=== PATIENT | male | born 1965 | race Caucasian/White ===

== ENCOUNTER 2018-02-25 06:21 | Day surgery (SDC) | payer OTHER ==
[2018-02-18 16:56] VITALS: BMI 25.0
[2018-02-25] MEDS ORDERED: methylPREDNISolone ACET (DEPO) 40 MG/1 ML VIAL ONE (07:04)
[2018-02-25] MEDS ORDERED: LIDOCAINE 1%/EPI 1:100000 (20 ML MULTI DOSE VIAL) ONE (07:05)
[2018-02-25] MEDS ORDERED: THROMBIN (BOVINE) 5,000 UNIT VIAL TP ONE ×2 (07:05→09:37)
[2018-02-25] MEDS ORDERED: GUM MASTIC/STORAX/MSAL/ALCOHOL 1 DRP DROPSBTL MC ONE (07:05)
--- NOTE | 2018-02-25 07:09 | HP ---
History & Physical Update - History History: No Change - Physical Physical: No Change - Assessment Assessment: No Change - Plan Plan: No Change (Initial H&P is located in patient's paper chart. Here today for elective L4/5 laminectomy 2/2 LBP w/ radiculopathy (RLE-->toes). No new complaints or medications.)
[2018-02-25] MEDS ORDERED: oxyCODONE HCL 10 MG SUSTAINED ACTING TABLET PO STA (07:17)
[2018-02-25] MEDS ORDERED: MIDAZOLAM HCL 2 MG/2 ML SINGLE DOSE VIAL ONE ×2 (08:02→09:37)
[2018-02-25] MEDS ORDERED: BUPIVACAINE HCL/PF (5 MG/ML) 30 ML VIAL IJ ONE (08:02)
[2018-02-25] MEDS ORDERED: DEXAMETHASONE SOD PHOSPHATE/PF 10 MG/ML SDV ONE (08:02)
[2018-02-25] MEDS ORDERED: PROPOFOL 20 ML ONE (09:01)
[2018-02-25] MEDS ORDERED: SUCCINYLCHOLINE CHLORIDE 200 MG/10 ML VIAL ONE (09:01)
[2018-02-25] MEDS ORDERED: ONDANSETRON 4 MG/2 ML VIAL ONE (09:13)
[2018-02-25] MEDS ORDERED: ceFAZolin SODIUM 1 GM VIAL ONE (09:13)
[2018-02-25] MEDS ORDERED: DEXAMETHASONE SOD PHOSPHATE 4 MG/1 ML VIAL ONE (09:13)
[2018-02-25] MEDS ORDERED: LIDOCAINE 1%/EPI 1:100000 (50 ML MULTI DOSE VIAL) INF ONE (09:20)
[2018-02-25] MEDS ORDERED: GELATIN SPONGE,ABSORBABLE 1 GM PACKET TP ONE (09:38)
[2018-02-25] MEDS ORDERED: ACETAMINOPHEN/CAFFEINE/BUTALBITAL 1 TAB PO PRN (11:15)
[2018-02-25] MEDS ORDERED: LACTATED RINGERS SOLUTION 1,000 ML/1,000 ML INFUS.BAG IV SCH (11:15)
[2018-02-25] MEDS ORDERED: oxyCODONE HCL 5 MG TABLET PO PRN ×2 (11:18)
[2018-02-25] MEDS ORDERED: ONDANSETRON 4 MG TABLET PO PRN (11:19)
--- NOTE | 2018-02-25 11:22 | OP ---
Operative Note - Note: Operative Date: 02/25/18 Pre-Operative Diagnosis: L4-5 stenosis with radiculopathy Operation: L4-5 bilateral laminectomy with repair of durotomy Post-Operative Diagnosis: Same as Pre-op Surgeon: Jesus Valenzuela Business Mgr: Mali Wood (Gaston Ashby) Anesthesiologist/SAMPLE STITCHER: Josephine Lynn Anesthesia: Spinal, Local (TLIP) Estimated Blood Loss (mls): 20 Fluid Volume Replaced (mls): 800 Operative Report Dictated: Yes
--- NOTE | 2018-02-25 11:22 | OP ---
DATE OF OPERATION: 02/25/2018 PREOPERATIVE DIAGNOSIS: Spinal stenosis L4-L5. POSTOPERATIVE DIAGNOSIS: Spinal stenosis L4-L5. PROCEDURE PERFORMED: 1. Laminectomy L4-L5. 2. Dural tear repair. SURGEON: Jesus Valenzuela MD SOFTWARE QUALITY TESTER: WALDEMAR Sams ESTIMATED BLOOD LOSS: 50 mL. IV FLUIDS: Per Anesthesia. ANESTHESIA: Spinal/TLIP. COMPLICATIONS: Dural tear repaired with 5-0 Nurolon suture. INDICATIONS FOR SURGERY: The patient is a 53-year-old gentleman who has been suffering from pain from his back down his leg. X-rays and MRI were completed, which noted that he had spinal stenosis at L4-L5. He had gone through an exhaustive course of treatment for this, which included medications, physical therapy as well as injections. Unfortunately, his pain continued to persist despite all this. At this point, risks, benefits, and alternatives were discussed, and the patient consented to surgery. DESCRIPTION OF PROCEDURE: The patient was brought to the operating room by the Anesthesia staff. After appropriate patient identification was performed, spinal anesthesia was given along with a TLIP block. The patient was able to position himself prone onto the Bill frame with all areas and bony prominences well padded at this time. Two needles were placed into his back to carin off the L4-L5 segment. X-ray was taken to confirm this was correct. Needle was removed, and 10 mL of lidocaine with epinephrine was injected into his back. At this time, his back was prepped and draped in a sterile manner. At this point, a time-out was completed then incision was made from the top of L4 down to the bottom of L5. Dissection was carried down to the fascia. Fascia was split open at this time, and appropriate retractor was then placed in. A spinal needle was placed onto the L4 lamina to carin off the L4-L5 space. X-ray was taken to confirm this was correct. Needle was removed, and the microscope was brought in. The interspinous ligament at L4-L5 was removed. Portions of the L4-L5 spinous process was removed. Portions of the L5 lamina were removed. The flavum was identified. It was removed. A complete decompression was performed such that by the end of the procedure the L5 nerve root appeared to be well decompressed. At this point, a dural tear was noted. It was repaired with a Nurolon suture. Valsalva maneuver was performed, and there was no leakage. Surgicel was placed onto that. DuraSeal was placed over that. The fascia was closed with a No. 1 Vicryl suture. It was oversewn. The subcutaneous tissue was closed with 2-0 Vicryl suture. The skin was closed with 3-0 Monocryl suture. Dermabond was applied. A sterile dressing was applied. The patient was placed supine on the OR bed and brought to the PACU in stable condition. Rasheed [id number]
--- NOTE | 2018-02-25 11:24 | SURG ---
Surgery Mandarin Chinese Teacher Note Mandarin Chinese Teacher: Mali Wood PA-C Date of Service: 02/25/18 Diagnosis: L4-5 stenosis and radiculopathy Procedure: L4-5 bilateral laminectomy with repair of durotomy I was present for the entirety of the operative procedure. For further detail, please refer to operative report. Visit type - Case Type Case Type: Scheduled - New patient This patient is new to me today: Yes Date on this admission: 02/25/18
[2018-02-25 12:17] VITALS: TEMP 98.1
[2018-02-25] MEDS ORDERED: DOCUSATE SODIUM 100 MG CAPSULE (FP) PO SCH (14:00)
[2018-02-25 15:05] VITALS: BP 118/72; PULSE 90
[2018-02-25] MEDS ORDERED: ATORVASTATIN CA 80 MG TABLET (FP) PO SCH (22:00)
[2018-02-26] MEDS ORDERED: LISINOPRIL 20 MG TABLET (FP) PO SCH (10:00)
== END 2018-02-25 15:06 | disposition home or self-care (01) ==
LOC: FASU 06:21
PROVIDERS: ATTEND Orthopaedic Surgery Orthopaedic Surgery of the Spine
PROC: 01NB0ZZ Release Lumbar Nerve, Open Approach (ICD-10-PCS; principal; 2018-02-25 09:03)
DX: M48.061 Spinal stenosis, lumbar region without neurogenic claudication (principal); G96.11 Dural tear
CPT/HCPCS: 72100-TC-FY; 76000-TC-FY; 94760